=== PATIENT | male | born 1955 | race Caucasian/White ===

== ENCOUNTER 2022-11-12 11:27 | Inpatient (IN) | payer OTHER ==
[~2022-11-12] VITALS: Ht 182.9 cm; Wt 98.4 kg
--- NOTE | 2022-11-12 12:14 | NUR ---
COVID TEST COLLECTED AND SENT
--- NOTE | 2022-11-12 12:15 | NUR ---
X RAY AT BEDSIDE
--- NOTE | 2022-11-12 12:50 | NUR ---
informed pt of upcoming admission for Dialysis port reassessment
[2022-11-12 13:12] LABS: CALCIUM, SERUM 8.5 mg/dL (8.5-10.1); POTASSIUM 4.9 mmol/L (3.5-5.1)
[2022-11-12 13:13] LABS: CREATININE 14.6 mg/dL (0.6-1.3)
[2022-11-12] MEDS ORDERED: APIX2.5T PO (13:13)
[2022-11-12] MEDS ORDERED: METO25TA4 PO (13:13)
[2022-11-12] MEDS ORDERED: FOLI0.8T23 PO (13:13)
[2022-11-12] MEDS ORDERED: SEVE800T28 PO (13:13)
[2022-11-12] MEDS ORDERED: AMLO10TA4 PO (13:13)
[2022-11-12] MEDS ORDERED: ATOR40TA PO (13:13)
[2022-11-12 14:32] LABS: BASOPHILS % (AUTO) 0.7 % (0.0-2.0); EOSINOPHILS % (AUTO) 1.7 % (0.0-6.0); HEMATOCRIT 40 % (39-51); HEMOGLOBIN 13.1 g/dL (13.5-17.5); LYMPHOCYTES % (AUTO) 16.9 % (20.0-44.0); MEAN CORPUSCULAR HGB CONC 33 g/dl (31.0-36.0); MEAN CORPUSCULAR VOLUME 96 fL (80-96); MONOCYTES # (AUTO) 0.3 K/uL (0.1-1.30); MONOCYTES % (AUTO) 5.7 % (2.0-12.0); NEUTROPHILS # (AUTO) 4.5 K/uL (1.8-8.9); PLATELET COUNT (AUTO) 128 K/uL (150-450); RED BLOOD CELL COUNT(AUTO) 4.17 MIL/uL (4.5-6.0); WHITE BLOOD COUNT (AUTO) 5.9 K/uL (4.3-11.0)
--- NOTE | 2022-11-12 14:59 | NUR ---
pt in bed. Waiting for available bed
[2022-11-12] MEDS ORDERED: ZOLPIDEM TARTRATE 5 MG TABLET PO PRN (15:30)
[2022-11-12] MEDS ORDERED: MAG HYDROX/AL HYDROX/SIMETH 30 ML UDC PO PRN (15:30)
[2022-11-12] MEDS ORDERED: Z GUARD REMEDY 4 OZ OINT TP PRN (15:30)
[2022-11-12] MEDS ORDERED: MAGNESIUM HYDROXIDE 30 ML UDC PO PRN (15:30)
[2022-11-12] MEDS ORDERED: ONDANSETRON HCL/PF 4 MG/2 ML VIAL IVP PRN (15:30)
[2022-11-12] MEDS ORDERED: ACETAMINOPHEN 325 MG TABLET PO PRN (15:30)
--- NOTE | 2022-11-12 15:36 | NUR ---
Reoprt given to Velia SHELLEY.
--- NOTE | 2022-11-12 15:50 | NUR ---
RN NOTE- PT ARRIVED FROM ED FOR ADMISSION. BEGIN PROCESS
--- NOTE | 2022-11-12 15:51 | NUR ---
EMPLOYEE DEVELOPMENT MANAGER NOTE- 67 Y/O MALE CAME INTO ED DUE TO HEMODIALYSIS CATH RUCW WITH BLEEDING NOTED BY PT. PT HAS ESRD WITH HD ON SAT. NO FEVER, CHILLS OR SX. ADMITTING FOR POSS HD CATH SUBCLAVIAN PLACEMENT. PT AOX4, CALM INTERACTIVE. AMBULATES W ASSIST FWW. [place] WITH FROM. PT HAS OLD PERMA-CATH SITE TO PRATIK. SCARS PRESENT. SKIN INTACT THROUGHOUT. CHEST CLEAR TO AUSCULTATION. NO RHONCHI, NO RALES, NO WHEEZING. HR- REG, ABDOMEN- SOFT NT, ND, POS BS THROUGHOUT. PT ANURIC THOUGH REG BMS REPORTED . COVID VACC STATUS , PNA AND FLU VACC STATUS COMPLETED. ORDERS GIVEN, COMPLIED. NPO AFTER MN FOR POSS HD CATH PLACEMENT. BP- 150/96, HR- 76, RR- 18, T- 97.8, SATS 98% RA. SIDE RAILS UP, BED LOCKED, CALL LIGHT IN REACH. MONITOR / ASSIST
[2022-11-12] MEDS: SEVELAMER CARBONATE 800 MG TABLET PO SCH (17:23)
--- NOTE | 2022-11-12 18:34 | NUR ---
RN CLOSING NOTE- PT IN BED AOX4, ATE 100% DINNER. AWARE OF NPO STATUS AFTER MN, VS STABLE. MEDS ORDERED PER MD. NO IV ACCESS AT PRESENT. SIDE RAILS UP, BED LOCKED, CALL LIGHT IN REACH. MONITOR / ASSIST,
--- NOTE | 2022-11-12 19:30 | NUR ---
MS RN OPENING NOTE RECEIVED PATIENT FROM AM NURSE, AWAKE IN BED, A/O X 4; STABLE ON ROOM AIR BREATHING EVENLY AND UNLABORED, WITH NO SIGNS OF RESPIRATORY DISTRESS NOTED; NO COMPLAINTS OF PAIN AND DISCOMFORT AT THIS TIME; ENCOURAGED VERBALIZATION OF NEEDS; SAFETY MEASURES IN PLACE; BED IN LOWEST AND LOCKED POSITION, SIDE RAILS UP X 3, TRAY TABLE AND CALL LIGHT WITHIN EASY REACH. WILL CONTINUE TO MONITOR THROUGHOUT SHIFT
[2022-11-12 20:00] VITALS: BP 136/90
[2022-11-12] MEDS ORDERED: OXYMETAZOLINE HCL NASAL SPRAY 30 ML BOTTLE NS PRN (22:00)
[2022-11-12] MEDS ORDERED: OXYMETAZOLINE HCL NASAL SPRAY 30 ML BOTTLE NS ONE ×2 (22:00→23:36)
[2022-11-12] MEDS: OXYMETAZOLINE HCL NASAL SPRAY 30 ML BOTTLE NS PRN (23:42)
--- NOTE | 2022-11-13 06:50 | NUR ---
MS RN CLOSING NOTE PATIENT AWAKE IN BED, A/O X 4; STABLE ON ROOM AIR BREATHING EVENLY AND UNLABORED, WITH NO SIGNS OF RESPIRATORY DISTRESS NOTED; NO COMPLAINTS OF PAIN AND DISCOMFORT AT THIS TIME; ADMINISTERED MEDICATIONS PRESCRIBED; PATIENT'S NEEDS ATTENDED; MONITORED PATIENT ACCORDINGLY; SAFETY MEASURES IN PLACE; BED IN LOWEST AND LOCKED POSITION, SIDE RAILS UP X 3, TRAY TABLE AND CALL LIGHT WITHIN EASY REACH. WILL ENDORSE TO AM NURSE FOR KERRY.
[2022-11-13 06:56] LABS: BASOPHILS % (AUTO) 0.8 % (0.0-2.0); EOSINOPHILS % (AUTO) 2.9 % (0.0-6.0); HEMATOCRIT 41 % (39-51); HEMOGLOBIN 13.5 g/dL (13.5-17.5); LYMPHOCYTES # (AUTO) 1.2 K/uL (0.8-4.8); LYMPHOCYTES % (AUTO) 23.3 % (20.0-44.0); MEAN CORPUSCULAR HGB CONC 33 g/dl (31.0-36.0); MEAN CORPUSCULAR VOLUME 97 fL (80-96); MONOCYTES # (AUTO) 0.4 K/uL (0.1-1.30); MONOCYTES % (AUTO) 7.2 % (2.0-12.0); NEUTROPHILS # (AUTO) 3.5 K/uL (1.8-8.9); NEUTROPHILS % (AUTO) 65.8 % (43.0-81.0); PLATELET COUNT (AUTO) 136 K/uL (150-450); RED BLOOD CELL COUNT(AUTO) 4.25 MIL/uL (4.5-6.0); WHITE BLOOD COUNT (AUTO) 5.3 K/uL (4.3-11.0)
[2022-11-13 07:00] VITALS: BP 151/90
[2022-11-13 07:12] LABS: CALCIUM, SERUM 8.3 mg/dL (8.5-10.1); MAGNESIUM 3.6 mg/dL (1.8-2.4); PHOSPHORUS 5.4 mg/dL (2.5-4.9); POTASSIUM 5.3 mmol/L (3.5-5.1)
[2022-11-13 07:15] LABS: CREATININE 15.9 mg/dL (0.6-1.3)
--- NOTE | 2022-11-13 07:15 | NUR ---
MS RN OPENING NOTE RECEIVED PATIENT IN BED, ALERT AND ORIENTED X 4. ON ROOM AIR BREATHING EVENLY AND UNLABORED, WITH NO SIGNS OF RESPIRATORY DISTRESS NOTED. NO COMPLAINTS OF PAIN AND DISCOMFORT AT THIS TIME. WITH PERMACATH ON THE RIGHT CHEST WALL COVERED WITH DRESSING, WITH DRY BLOOD. PATIENT KEPT ON NPO ORDERED, FOR SCHEDULED PROCEDURE. CONSENTS SECURED AND ATTACHED TO CHART. SAFETY MEASURES IN PLACE; BED IN LOWEST AND LOCKED POSITION, SIDE RAILS UP X 3, TRAY TABLE AND CALL LIGHT WITHIN EASY REACH. WILL CONTINUE WITH PLAN OF CARE.
[2022-11-13] MEDS: AMLODIPINE BESYLATE 10 MG TABLET PO SCH (08:36)
[2022-11-13] MEDS: VIT B CMPLX 3/FA/VIT C/BIOTIN 1 TAB TABLET PO SCH (08:37)
[2022-11-13] MEDS: ATORVASTATIN 40 MG TABLET PO SCH (08:37)
[2022-11-13] MEDS: SEVELAMER CARBONATE 800 MG TABLET PO SCH ×2 (08:37→17:00)
[2022-11-13] MEDS: METOPROLOL SUCCINATE 25 MG TAB.SR.24H PO SCH (08:38)
--- NOTE | 2022-11-13 09:30 | NUR ---
MS RN NOTE PATIENT UPDATED OF SCHEDULED PROCEDURE, BETWEEN 4-5 PM TODAY. PATIENT REQUESTED TO SPEAK WITH THE ANESTHESIOLOGIST. HE SAID THAT HE WAS NPO SINCE MIDNIGHT AND IS VERY HUNGRY RIGHT NOW AND DOES NOT HAVE ANY IV BECAUSE OF ESRD. SPOKE WITH MICHAEL OF SURGERY DEPARTMENT. WILL RELAY TO .
--- NOTE | 2022-11-13 10:30 | NUR ---
MS RN NOTE PATIENT SPOKE WITH ANESTHESIOLOGIST REGARDING EATING SOMETHING LIGHT AND WAS PERMITTED EAST AND THEN GO BACK TO NPO. ORDER PLACED TO KITCHEN AND PICKED UP AND GIVEN TO PATIENT. IN STABLE CONDITION.
[2022-11-13] MEDS ORDERED: HEPARIN SODIUM, PORCINE 1,000 UNIT/ML VIAL ONE (14:12)
[2022-11-13] MEDS ORDERED: IOHEXOL 0 ML IV ONE (14:12)
[2022-11-13] MEDS ORDERED: LIDOCAINE HCL/MPF 1% 30 ML VIAL IJ ONE (14:12)
--- NOTE | 2022-11-13 15:36 | NUR ---
MS RN NOTE PATIENT PICKED UP FOR SCHEDULED PERMACATH PLACEMENT. BS CHECKED WITH OR NURSES AWARE. KEPT NPO SINCE 1029. ENDORSED ACCORDINGLY. IN STABLE CONDITION.
[2022-11-13] MEDS ORDERED: MIDAZOLAM HCL 2 MG/2ML VIAL ONE (15:46)
[2022-11-13] MEDS ORDERED: FENTANYL PF 100MCG/2ML AMPUL ONE (15:46)
[2022-11-13] MEDS ORDERED: BUPIVACAINE 0.5 % PF 150 MG/30 ML VIAL ONE (16:17)
[2022-11-13] MEDS ORDERED: ONDANSETRON HCL/PF 4 MG/2 ML VIAL ONE (16:46)
--- NOTE | 2022-11-13 17:02 | NUR ---
MS RN NOTE PATIENT STILL AT OR.
--- NOTE | 2022-11-13 17:35 | NUR ---
MS RN NOTE BACK FROM PROCEDURE WITH ORDERS FROM MD, ORDERS SENT TO PHARMACY. PATIENT TRANSPORTED VIA BED ACCOMPANIED BY 2 NURSES. PATIENT IS ALERT AND ORIENTED X 4, TOLERATED PROCEDURE. IN STABLE CONDITION. VS WNL. NOT IN DISTRESS. CALLED RADIOLOGY FOR RESULT, STILL NOT AVAILABLE. WILL CONTINUE WITH PLAN OF CARE.
[2022-11-13] MEDS ORDERED: HYDROCODONE/APAP 5/325MG TABLET PO PRN (18:00)
[2022-11-13] MEDS: ANCEF 1 GM/50 ML D5W IV SCH ×4 (18:00→23:32)
--- NOTE | 2022-11-13 18:01 | NUR ---
MS RN NOTE S/P SURGERY WITH ORDER TO START PATIENT ON ANCEF Q8 HOURS X 3 DOSES, LOADING DOSE GIVEN AT O.R. AT 1600. PHARMACIST NOTIFIED TO CHANGE ORDER OF START FROM 11/13/2022 AT 0000 TO 11/14/2022 AT 0000.
--- NOTE | 2022-11-13 18:45 | NUR ---
MS RN CLOSING NOTE PATIENT IN BED, ALERT AND ORIENTED X 4. ON ROOM AIR BREATHING EVENLY AND UNLABORED, WITH NO SIGNS OF RESPIRATORY DISTRESS NOTED. NO COMPLAINTS OF PAIN AND DISCOMFORT AT THIS TIME. WITH PERMACATH ON THE RIGHT CHEST WALL UNDERGOING HEMODIALYSIS RIGHT NOW. SAFETY MEASURES IN PLACE; BED IN LOWEST AND LOCKED POSITION, SIDE RAILS UP X 3, TRAY TABLE AND CALL LIGHT WITHIN EASY REACH. WILL ENDORSE TO NEXT SHIFT FOR CONTINUITY OF CARE.
--- NOTE | 2022-11-13 19:30 | NUR ---
MS RN OPENING NOTE RECEIVED PATIENT FROM AM NURSE, AWAKE IN BED, ALERT AND ORIENTED X 4; STABLE ON ROOM AIR BREATHING EVENLY AND UNLABORED, WITH NO SIGNS OF RESPIRATORY DISTRESS NOTED; NO COMPLAINTS OF PAIN AND DISCOMFORT AT THIS TIME; ONGOING HEMODIALYSIS; ENCOURAGED VERBALIZATION OF NEEDS; SAFETY MEASURES IN PLACE; BED IN LOWEST AND LOCKED POSITION, SIDE RAILS UP X 3, TRAY TABLE AND CALL LIGHT WITHIN EASY REACH. WILL CONTINUE TO MONITOR THROUGHOUT SHIFT
[2022-11-13 20:00] VITALS: BP 111/72
[2022-11-13] MEDS: OXYMETAZOLINE HCL NASAL SPRAY 30 ML BOTTLE NS PRN (20:29)
--- NOTE | 2022-11-13 21:00 | NUR ---
MS RN NOTE HEMODIALYSIS DONE. HD NURSE INFORMED THAT HD RUN FOR 2 HOURS AND 2 LITERS WAS OUT. PER HD NURSE, ONE LINE OF THE PERM CATH IS NOT ASPIRATING BLOOD BUT THEY CAN STILL USE IT FOR HEMODIALYSIS. HE INFORMED DR CASE ABOUT IT.
[2022-11-14] MEDS: ANCEF 1 GM/50 ML D5W IV SCH ×4 (04:45→13:29)
--- NOTE | 2022-11-14 06:51 | NUR ---
MS RN CLOSING NOTE PATIENT ASLEEP IN BED, ALERT AND ORIENTED X 4; STABLE ON ROOM AIR BREATHING EVENLY AND UNLABORED, WITH NO SIGNS OF RESPIRATORY DISTRESS NOTED; NO COMPLAINTS OF PAIN AND DISCOMFORT AT THIS TIME; ADMINISTERED MEDICATIONS PRESCRIBED; PATIENT'S NEEDS ATTENDED; MONITORED PATIENT ACCORDINGLY; SAFETY MEASURES IN PLACE; BED IN LOWEST AND LOCKED POSITION, SIDE RAILS UP X 3, TRAY TABLE AND CALL LIGHT WITHIN EASY REACH. WILL ENDORSE TO AM NURSE FOR KERRY.
[2022-11-14 07:00] VITALS: BP 132/81
[2022-11-14 07:11] LABS: CALCIUM, SERUM 8.1 mg/dL (8.5-10.1)
[2022-11-14 07:24] LABS: BASOPHILS % (AUTO) 0.7 % (0.0-2.0); EOSINOPHILS % (AUTO) 2.3 % (0.0-6.0); HEMATOCRIT 36 % (39-51); HEMOGLOBIN 12.3 g/dL (13.5-17.5); LYMPHOCYTES % (AUTO) 19.5 % (20.0-44.0); MEAN CORPUSCULAR HGB CONC 34 g/dl (31.0-36.0); MEAN CORPUSCULAR VOLUME 95 fL (80-96); MONOCYTES # (AUTO) 0.4 K/uL (0.1-1.30); MONOCYTES % (AUTO) 8.1 % (2.0-12.0); NEUTROPHILS # (AUTO) 3.4 K/uL (1.8-8.9); NEUTROPHILS % (AUTO) 69.4 % (43.0-81.0); PLATELET COUNT (AUTO) 129 K/uL (150-450); RED BLOOD CELL COUNT(AUTO) 3.82 MIL/uL (4.5-6.0); WHITE BLOOD COUNT (AUTO) 4.9 K/uL (4.3-11.0)
--- NOTE | 2022-11-14 07:45 | NUR ---
MS RN OPENING NOTES: RECEIVED PATIENT AWAKE, ALERT AND ORIENTED X 4; STABLE ON ROOM AIR BREATHING EVENLY AND UNLABORED, WITH NO SIGNS OF RESPIRATORY DISTRESS NOTED. DENIES PAIN AT THIS TIME. IV ACCESS AT R AC #20, SL, PATENT AND INTACT. PERMACATH NOTED AT R UPPER CHEST, S/P INSERTION 11/13. SAFETY MEASURES IN PLACE; BED IN LOWEST AND LOCKED POSITION, SIDE RAILS UP X 3, TRAY TABLE AND CALL LIGHT WITHIN EASY REACH, WILL CONT WITH PLAN OF CARE DURING SHIFT.
[2022-11-14] MEDS: METOPROLOL SUCCINATE 25 MG TAB.SR.24H PO SCH (08:18)
[2022-11-14] MEDS: ATORVASTATIN 40 MG TABLET PO SCH (08:18)
[2022-11-14] MEDS: VIT B CMPLX 3/FA/VIT C/BIOTIN 1 TAB TABLET PO SCH (08:18)
[2022-11-14] MEDS: AMLODIPINE BESYLATE 10 MG TABLET PO SCH (08:18)
[2022-11-14] MEDS: SEVELAMER CARBONATE 800 MG TABLET PO SCH ×2 (08:18→16:42)
[2022-11-14 08:57] LABS: POTASSIUM 6.4 mmol/L (3.5-5.1)
[2022-11-14 08:58] LABS: CREATININE 14.5 mg/dL (0.6-1.3)
--- NOTE | 2022-11-14 09:24 | NUR ---
RN NOTES: PT K+ = 6.4, REPORTED BY LAB STAFF. PT S/P HD 11/13/2022. NOTIFIED, SHAKIRA HOSPITALIST AND MD EVIE FOR POSSIBLE HD
[2022-11-14 15:46] LABS: CALCIUM, SERUM 7.7 mg/dL (8.5-10.1); POTASSIUM 4.7 mmol/L (3.5-5.1)
[2022-11-14 15:53] LABS: CREATININE 10.1 mg/dL (0.6-1.3)
[2022-11-14 16:00] VITALS: BP 130/87
--- NOTE | 2022-11-14 19:30 | NUR ---
RN Opening Notes Received pt in bed, awake. No respiratory distress noted. Patient stable. All needs met at this time.
[2022-11-14] MEDS: OXYMETAZOLINE HCL NASAL SPRAY 30 ML BOTTLE NS PRN (19:40)
--- NOTE | 2022-11-14 19:51 | NUR ---
MS RN CLOSING NOTES: PATIENT AWAKE, ALERT AND ORIENTED X 4; STABLE ON ROOM AIR BREATHING EVENLY AND UNLABORED, WITH NO S/S OF SOB AND ACUTE DISTRESS NOTED. DENIES PAIN AT THIS TIME. IV ACCESS AT R AC #20, SL, PATENT AND INTACT. PERMACATH NOTED AT R UPPER CHEST, S/P INSERTION 11/13. S/P HD (11/14), OUTPUT = 3L. ALL MEDS GIVEN, NEEDS MET, ALL SAFETY MEASURES IN PLACE, ENDORSED TO PM SHIFT.
[2022-11-14 20:00] VITALS: BP 116/82
--- NOTE | 2022-11-15 06:52 | NUR ---
RN Closing Notes Pt in bed, asleep, awakens to verbal stimuli. No respiratory distress noted. Patient stable. All needs met. All orders carried out. Pt kept clean and dry. Will endorse to oncoming shift for KERRY.
[2022-11-15 08:00] VITALS: BP 126/85
[2022-11-15] MEDS: SEVELAMER CARBONATE 800 MG TABLET PO SCH ×2 (08:40→17:34)
[2022-11-15] MEDS: ATORVASTATIN 40 MG TABLET PO SCH (08:40)
[2022-11-15] MEDS: VIT B CMPLX 3/FA/VIT C/BIOTIN 1 TAB TABLET PO SCH (08:40)
[2022-11-15] MEDS: AMLODIPINE BESYLATE 10 MG TABLET PO SCH (08:50)
[2022-11-15] MEDS: METOPROLOL SUCCINATE 25 MG TAB.SR.24H PO SCH (08:50)
--- NOTE | 2022-11-15 08:50 | NUR ---
RN NOTES: HELD BP MEDS FOR HD TODAY 11/15/22 BP= 126/85 HR= 70
[2022-11-15] MEDS ORDERED: ALTEPLASE CATHFLO 2 MG/VIAL XX ONE (11:30)
--- NOTE | 2022-11-15 11:33 | NUR ---
RN NOTES: PER HD RN, PT'S HD NOT COMPLETED DUE TO HD CATH MALFUNCTION. HD LASTED FOR 1 HR WITH 1 L OUTPUT. MADE MD AWARE, ORDERED TPA, ADMINISTERED BY HD RN. MADE HOSPITALIST, CM AND RUG HOOKER AWARE, PT WILL NOT BE DISCHARGED TODAY 11/15/2022
[2022-11-15] MEDS ORDERED: HEPARIN-LOCK FLUSH PORCINE PF 100 UNITS/1 ML (10 ML)DISP.SYRIN IVF ONE ×2 (17:00→17:30)
[2022-11-15] MEDS ORDERED: HEPARIN SODIUM,PORCINE/PF 50 UNIT/5 ML DISP.SYRIN IV ONE (17:00)
[2022-11-15] MEDS ORDERED: HEPARIN-LOCK FLUSH PORCINE PF 10 UNITS/1 ML (10 ML)DISP.SYRIN IV ONE (17:30)
--- NOTE | 2022-11-15 18:00 | NUR ---
KARSTEN NOTES: PT'S HD CATH PORTS FLUSHED WITH HEPARIN PER MD ORDER. Addendum: 11/15/22 at 1927 by JEFFREY AC RN 2 CC POR EACH PORT
--- NOTE | 2022-11-15 18:53 | NUR ---
MS RN CLOSING NOTES: PATIENT AWAKE, ALERT AND ORIENTED X 4; STABLE ON ROOM AIR BREATHING EVENLY AND UNLABORED, WITH NO S/S OF SOB AND ACUTE DISTRESS NOTED. DENIES PAIN AT THIS TIME. IV ACCESS AT L FA # #22, SL, PATENT AND INTACT. PERMACATH NOTED AT R UPPER CHEST, S/P INSERTION 11/13. S/P HD 11/15, HOWEVER WAS NOT COMPLETED DUE PORT CLOGGING PER HD RN; OUTPUT = 1L. ALL MEDS GIVEN, NEEDS MET, ALL SAFETY MEASURES IN PLACE, CALL LIGHT AND TABLE WITHIN EASY REACH, WILL ENDORSE TO PM SHIFT.
--- NOTE | 2022-11-15 19:30 | NUR ---
MS RN OPENING NOTES: RECEIVED PATIENT AWAKE IN BED. PATIENT IS ALERT AND ORIENTED X 4 AND ABLE TO MAKE NEEDS KNOWN.STABLE ON ROOM AIR BREATHING EVEN AND UNLABORED. NO PAIN NOTED.NO SIGNS OF RESPIRATORY DISTRESS NOTED. IV ACCESS AT R AC #20, SL, LFA G # 22 PATENT AND INTACT. PERMACATH NOTED ON RIGHT UPPER CHEST WALL. S/P INSERTION OF PERMACATH ON 11/13. ALL SAFETY MEASURES IN PLACE; BED IN LOWEST AND LOCKED POSITION, SIDE RAILS UP X 3, TABLE AND CALL LIGHT WITHIN EASY REACH, WILL CONTINUE TO MONITOR CLOSELY.
[2022-11-15 20:00] VITALS: BP 122/66
[2022-11-16 06:16] LABS: BASOPHILS % (AUTO) 0.7 % (0.0-2.0); HEMATOCRIT 37 % (39-51); HEMOGLOBIN 12.3 g/dL (13.5-17.5); LYMPHOCYTES % (AUTO) 19.1 % (20.0-44.0); MEAN CORPUSCULAR HGB CONC 33 g/dl (31.0-36.0); MEAN CORPUSCULAR VOLUME 95 fL (80-96); MONOCYTES # (AUTO) 0.4 K/uL (0.1-1.30); NEUTROPHILS # (AUTO) 3.5 K/uL (1.8-8.9); NEUTROPHILS % (AUTO) 69.2 % (43.0-81.0); PLATELET COUNT (AUTO) 121 K/uL (150-450); RED BLOOD CELL COUNT(AUTO) 3.89 MIL/uL (4.5-6.0); WHITE BLOOD COUNT (AUTO) 5.1 K/uL (4.3-11.0)
[2022-11-16 06:35] LABS: CALCIUM, SERUM 8.1 mg/dL (8.5-10.1); POTASSIUM 5.3 mmol/L (3.5-5.1)
--- NOTE | 2022-11-16 06:35 | NUR ---
MS RN CLOSING NOTES: PATIENT AWAKE IN BED. PATIENT IS ALERT AND ORIENTED X 4 AND ABLE TO MAKE NEEDS KNOWN.STABLE ON ROOM AIR BREATHING EVEN AND UNLABORED. NO PAIN NOTED.NO SIGNS OF RESPIRATORY DISTRESS NOTED. IV ACCESS AT R AC #20, SL, LFA G # 22 PATENT AND INTACT. PERMACATH NOTED ON RIGHT UPPER CHEST WALL. S/P INSERTION OF PERMACATH ON 11/13. CURRENTLY RECEIVING HEMODIALYSIS. ALL SAFETY MEASURES IN PLACE; BED IN LOWEST AND LOCKED POSITION, SIDE RAILS UP X 3, TABLE AND CALL LIGHT WITHIN EASY REACH, WILL ENDORSE FOR KERRY.
[2022-11-16 06:41] LABS: CREATININE 10.6 mg/dL (0.6-1.3)
[2022-11-16 07:00] VITALS: BP 128/85
[2022-11-16] MEDS ORDERED: HEPARIN SODIUM, PORCINE 1000 UNIT/1 ML VIAL IV ONE ×2 (07:30)
--- NOTE | 2022-11-16 07:43 | NUR ---
MS RN OPENING NOTE: RECEIVED PATIENT AWAKE, ALERT AND ORIENTED X 4; STABLE ON ROOM AIR BREATHING EVENLY AND UNLABORED, WITH NO SIGNS OF RESPIRATORY DISTRESS NOTED. DENIES PAIN AT THIS TIME. IV ACCESS AT R AC #20, SL, PATENT AND INTACT. PERMACATH NOTED AT R UPPER CHEST, S/P INSERTION 11/13. PATIENT HAVING HEMODIALYSIS TREATMENT AT THIS TIME. SAFETY MEASURES IN PLACE; BED IN LOWEST AND LOCKED POSITION, SIDE RAILS UP X 3, TRAY TABLE AND CALL LIGHT WITHIN EASY REACH, WILL CONTINUE WITH HOSPITALIST PROVIDER'S PLAN OF CARE.
[2022-11-16] MEDS: ATORVASTATIN 40 MG TABLET PO SCH ×2 (09:07→09:10)
[2022-11-16] MEDS: VIT B CMPLX 3/FA/VIT C/BIOTIN 1 TAB TABLET PO SCH (09:08)
[2022-11-16] MEDS: AMLODIPINE BESYLATE 10 MG TABLET PO SCH (09:09)
[2022-11-16] MEDS: SEVELAMER CARBONATE 800 MG TABLET PO SCH (09:09)
[2022-11-16 09:10] VITALS: BP 128/85
[2022-11-16] MEDS: METOPROLOL SUCCINATE 25 MG TAB.SR.24H PO SCH (09:10)
[2022-11-16] MEDS ORDERED: SODIUM POLYSTYRENE SULF. PWD 15 GM UDC PO ONE (11:30)
--- NOTE | 2022-11-16 14:00 | NUR ---
MS BACTERIOLOGY PROFESSOR PATIENT TO HOME NOTE: Patient tolerated removal of peripheral IV catheter well. IV catheter removed, fully intact. Patient had profuse bleeding at IV site, so 4" x 4" gauze with kerlix wrap gauze applied as pressure dressing to IV site and bleeding stopped with elevated arm. Ptientdemonstrated understnading of home care discharge instructions using the teach back method in his own words. Patient signed for possession and full accounting of all his listed belongings/valuables. Patient departed via wheelchair to his private car to drive himself home at 13:50 hours.
== END 2022-11-16 13:50 | disposition home or self-care (01) | DRG 314 ==
LOC: ER 11:33 → MED 15:27
PROVIDERS: ADMIT Nurse Practitioner Acute Care; ATTEND Nurse Practitioner Acute Care
PROC: 05PY33Z Removal of Infusion Device from Upper Vein, Percutaneous Approach (ICD-10-PCS; principal; 2022-11-13)
PROC: 0JH63XZ Insertion of Tunneled Vascular Access Device into Chest Subcutaneous Tissue and Fascia, Percutaneous Approach (ICD-10-PCS; 2022-11-13)
PROC: 05HM33Z Insertion of Infusion Device into Right Internal Jugular Vein, Percutaneous Approach (ICD-10-PCS; 2022-11-13)
PROC: B518YZA Fluoroscopy of Superior Vena Cava using Other Contrast, Guidance (ICD-10-PCS; 2022-11-13)
PROC: 5A1D70Z Performance of Urinary Filtration, Intermittent, Less than 6 Hours Per Day (ICD-10-PCS; 2022-11-13)
DX: T82.590A Other mechanical complication of surgically created arteriovenous fistula, initial encounter (principal); N18.6 End stage renal disease; I12.0 Hypertensive chronic kidney disease with stage 5 chronic kidney disease or end stage renal disease; I69.354 Hemiplegia and hemiparesis following cerebral infarction affecting left non-dominant side; Z99.2 Dependence on renal dialysis; Z20.822 Contact with and (suspected) exposure to COVID-19; E11.22 Type 2 diabetes mellitus with diabetic chronic kidney disease; Z79.01 Long term (current) use of anticoagulants; Z79.899 Other long term (current) drug therapy; M89.8X9 Other specified disorders of bone, unspecified site; Z95.5 Presence of coronary angioplasty implant and graft; I25.10 Atherosclerotic heart disease of native coronary artery without angina pectoris; Z98.890 Other specified postprocedural states; E87.5 Hyperkalemia; E78.00 Pure hypercholesterolemia, unspecified; T85.898A Other specified complication of other internal prosthetic devices, implants and grafts, initial encounter; Y92.009 Unspecified place in unspecified non-institutional (private) residence as the place of occurrence of the external cause; Y71.2 Prosthetic and other implants, materials and accessory cardiovascular devices associated with adverse incidents
CPT/HCPCS: 36415; 71045-TC; 80048-TC; 82962-TC; 83735-TC; 84100-TC; 85025-TC; 85610-TC; 85730-TC; 86706; 87081-TC; 87340; 90935-TC; A4223; A4649; C1750; C9803; G0378; J0690; J1642; J1644; J2250; J2405; J2704; J2997; J3010; J3490; J7030; J7060; Q9967